=== PATIENT | male | born 1970 | race Hispanic/Latino ===

== ENCOUNTER 2019-09-16 11:38 | Emergency (ER) | payer OTHER ==
[~2019-09-16] VITALS: Ht 170.2 cm; Wt 95.3 kg
[2019-09-16 11:55] VITALS: BP 128/84
[2019-09-16 11:56] VITALS: BP 128/84
--- NOTE | 2019-09-16 12:18 | ER.PDOC ---
General Chief Complaint: Cough/Congestion Stated Complaint: POSS SINUS INFECTION Time seen by MD: 12:06 Source: patient Exam Limitations: no limitations History of Present Illness Initial Comments Pt states he has been battling URI for past two weeks and now he is having more sinus pain and pressure and he feels it is moving to his chest. Purulent nasal drainage throughout the day with increasing sinus pain and pressure. Timing/Duration: last week Severity: moderate Associated Symptoms: fever/chills, runny nose, sinus pain/drainage, allergy, cough, bloody sputum, productive cough Past Medical History Medical History: no pertinent history Physical Exam General Appearance: alert Eye: eyes nml inspection, PERRL, pain on precuss of sinus, conjunctivae erythema Ear: (R) dullness Nose: rhinorrhea, mucosal edema, purlent nasal draingage Throat: pharyngeal erythema, hoarse voice Neck: nml inspection Respiratory: no resp.distress, breath sounds nml Abdomen: non-tender CVS: reg rate & rhythm, heart sounds nml Skin: color nml, no rash, warm/dry Extremities: non-tender NEURO/PSYCH: oriented x 3, motor nml, sensation nml, mood/affect nml Results/Orders Results/Orders Vital Signs Date Time Temp Pulse Resp B/P (MAP) Pulse Ox O2 Delivery O2 Flow Rate FiO2 09/16/19 11:56 98.2 79 18 09/16/19 11:55 98.2 79 18 128/84 (99) 97 09/16/19 11:47 98.2 79 18 97 Departure Time of Disposition: 12:24 Disposition: 01 HOME, SELF-CARE Impression: Primary Impression: Acute sinusitis Additional Impression: Cough in adult Condition: Stable Patient Instructions: Sinusitis, [id number] Referrals: PCP,UNKNOWN (PCP) PRIMARY CARE PROVIDER Additional Instructions: Continue to use OTC preparations to help reduce nasal congestion If symptoms worsen please return to the ER Follow up with PCP in 2-3 days if symptoms persist Duration or Time Spent with Pa: 20 min Problem Qualifiers SEDRICK BUSH NP Sep 16, 2019 12:18
[2019-09-16 12:27] VITALS: BP 130/78
== END 2019-09-16 12:32 | disposition home or self-care (01) ==
LOC: ER 11:38
DX: J01.90 Acute sinusitis, unspecified (principal)
CPT/HCPCS: 99283